=== PATIENT | male | born 1970 | race Caucasian/White ===

== ENCOUNTER 2019-02-14 04:38 | Emergency (ER) | payer SELFPAY ==
[2019-02-14] MEDS ORDERED: TETRACAINE HCL 0.5% OPH SOLN 4 ML OS ONE (06:11)
[2019-02-14] MEDS ORDERED: BESIFLOXACIN HCL 0.6% OPH SUSP 5 ML BOTTLE OS ONE (06:18)
--- NOTE | 2019-02-14 06:18 | ER Document Report ---
ED General - General Chief Complaint: Foreign Body in Eye Stated Complaint: OBJECT IN EYE Time Seen by Provider: 02/14/19 06:11 TRAVEL OUTSIDE OF THE [place] IN LAST 30 DAYS: No - HPI Patient complains to provider of: Foreign body left eye Notes: Patient coming in for evaluation of a possible foreign body in the left eye. Patient states that he was grinding yesterday when a piece of metal flew hit in the knee. Patient states the belly flushed out however continues to have a se nsation of something in his eye along with photophobia. Patient denies wearing contacts or glasses. Patient states he was not wearing a safety equipment at the time. Patient otherwise denies any other medical issues. - Related Data Allergies/Adverse Reactions: No Known Allergies Allergy (Verified 03/17/15 13:39) Past Medical History - Social History Smoking Status: Unknown if Ever Smoked Chew tobacco use (# tins/day): No Frequency of alcohol use: None Drug Abuse: None Family History: Reviewed & Not Pertinent Patient has suicidal ideation: No Patient has homicidal ideation: No Renal/ Medical History: Denies: Hx Peritoneal Dialysis Past Surgical History: Reports: Hx Orthopedic Surgery - Immunizations Hx Diphtheria, Pertussis, Tetanus Vaccination: Yes - UTD Review of Systems - Review of Systems Constitutional: No symptoms reported EENT: Eye pain Cardiovascular: No symptoms reported Respiratory: No symptoms reported Gastrointestinal: No symptoms reported Genitourinary: No symptoms reported Male Genitourinary: No symptoms reported Musculoskeletal: No symptoms reported Skin: No symptoms reported Hematologic/Lymphatic: No symptoms reported Neurological/Psychological: No symptoms reported Physical Exam - Vital signs Vitals: Temp Pulse Resp BP Pulse Ox 97.3 F 88 16 155/83 H 95 02/14/19 04:40 02/14/19 04:40 02/14/19 04:40 02/14/19 04:40 02/14/19 04:40 Interpretation: Normal - General General appearance: Appears well, Alert - HEENT Head: Normocephalic, Atraumatic Eyes: Normal Conjunctiva: Injected, Purulent discharge Cornea: Corneal abrasion, Embedded foreign body, Flourescein stain uptake Extraocular movements intact: Yes Eyelashes: Normal Pupils: PERRL - Respiratory Respiratory status: No respiratory distress Chest status: Nontender Breath sounds: Normal Chest palpation: Normal - Cardiovascular Rhythm: Regular Heart sounds: Normal auscultation Murmur: No - Abdominal Inspection: Normal Distension: No distension Bowel sounds: Normal Tenderness: Nontender Organomegaly: No organomegaly - Back Back: Normal, Nontender - Extremities General upper extremity: Normal inspection, Nontender, Normal color, Normal ROM, Normal temperature General lower extremity: Normal inspection, Nontender, Normal color, Normal ROM, Normal temperature, Normal weight bearing. No: Holly's sign - Neurological Neuro grossly intact: Yes Cognition: Normal Orientation: AAOx4 [place] Coma Scale Eye Opening: Spontaneous [place] Coma Scale Verbal: Oriented [place] Coma Scale Motor: Obeys Commands Chance Coma Scale Total: 15 Speech: Normal Motor strength normal: LUE, RUE, LLE, RLE Sensory: Normal - Psychological Associated symptoms: Normal affect, Normal mood - Skin Skin Temperature: Warm Skin Moisture: Dry Skin Color: Normal Course - Re-evaluation Re-evalutation: 02/14/19 06:56 Foreign body was seen at the 3 o'clock position of the right eye on the pupil. Using a 22-gauge and 18-gauge needle after instillation of tetracaine the foreign body was removed without difficulty evaluation of the eye after this procedure with slit lamp and re-staining with fluorescein revealed very minimal rust ring corneal abrasion at this time no seatbelt sign no signs of globe rupture or penetration during the foreign body removal. Lids were everted no other foreign body seen. Patient did receive good relief of his eye pain after removal of the metal foreign body. Patient will be started on Besivance given [place] for his pain control for home a 6 pack dispense pack will be given to the patient patient also is to take Tylenol Motrin. - Vital Signs Vital signs: Temp Pulse Resp BP Pulse Ox 97.3 F 88 16 155/83 H 95 02/14/19 04:40 02/14/19 04:40 02/14/19 04:40 02/14/19 04:40 02/14/19 04:40 Procedures - Eye Procedure Left Time completed: 06:55 Foreign body removal: Left Fluorescein applied: Left Antibiotic Oinment/Drps Admin: Left eye Slit lamp used: Yes Eyes picture: 1 - position of foreign metal body Discharge - Discharge Clinical Impression: Foreign body of left eye Qualifiers: Encounter type: initial encounter Qualified Code(s): T15.92XA - Foreign body on external eye, part unspecified, left eye, initial encounter Instructions: Corneal Foreign Body ([facility]), Corneal Abrasion ([facility]), Eyedrop Use ([facility]) Additional Instructions: Your evaluation today was successful for foreign body removal of the left side there is a small rust ring that should go away over time if you like it completely removed you can follow-up with the machine stemmer listed. Please use the eyedrops given to you here in ER Besivance 1-2 drops in the left eye 3 times a day for the next 7 days Return to the ER if your symptoms are worsening. Follow-up with your primary care physician as needed Referrals: DORIS POWER, DO [ACTIVE STAFF] - Follow up as needed
[2019-02-14] MEDS ORDERED: HYDROCODONE/ACETAMINOPHEN 5-325 MG (6 TAB/ER DISP) PO PRN (06:59)
[2019-02-14 07:39] VITALS: BP 153/94
== END 2019-02-14 07:42 | disposition home or self-care (01) ==
LOC: ER 04:38
DX: T15.02XA Foreign body in cornea, left eye, initial encounter (principal); X58.XXXA Exposure to other specified factors, initial encounter
CPT/HCPCS: 99283